=== PATIENT | female | born 1985 | race Caucasian/White ===

== ENCOUNTER 2022-09-07 10:10 | Emergency (ER) | payer OTHER, SELFPAY ==
[2022-09-07 10:11] VITALS: BP 131/90; PULSE 95; RESP 14; TEMP 37.2; O2SAT 91; BMI 43.0
--- NOTE | 2022-09-07 11:07 | RAD_ITS ---
INDICATION: cough EXAMINATION/TECHNIQUE: X-RAY - XR Chest 2 Views COMPARISON: No prior examinations are available for comparison. FINDINGS: LINES/DEVICES: None. LUNGS: No consolidation, edema or effusion. No pneumothorax. MEDIASTINUM AND CARDIOVASCULAR STRUCTURES: Cardiac silhouette not enlarged. Central airways and mediastinal contour are unremarkable. BONES AND SOFT TISSUES: No demonstrated acute osseous changes. RAD/Chest PA and Lateral IMPRESSION: No radiographic evidence of acute cardiopulmonary disease. Electronically Signed: Juan Pablo Lawson MD at 12:11 EDT ,
--- NOTE | 2022-09-07 11:08 | EDS_ITS ---
HPI HPI - URI History of Present Illness Chief Complaint: Shortness of Breath Detail of Chief Complaint: Wheezing. Informant: patient Onset/Context/Timing Onset: Days Context: Gradual Onset Timing: Intermittent Current Severity: Mild Maximum Severity: Mild Associated Symptoms Associated Symptoms: Positive for Productive Cough Narrative Narrative: 37-year-old [place] [facility] female past medical history of high blood pressure. She had a cough shortness of breath was treated for bronchitis by her primary care physician. She was given IM injection of steroids and placed on a Z-Tristin. Says she was feeling better until yesterday symptoms returned. Productive cough of green sputum. No fever. No chest pain. She is wheezing. No hemoptysis. No leg pain or swelling. No history of DVT or PE or risk factors. Prior similar symptoms: Yes Recent Illness/Hospitalization: No ROS ROS ED ROS Narrative Cough, wheezing, shortness of breath. Review of Systems ROS Unobtainable: Denies due to encephalopathy Constitutional Constitutional ED: Denies chills or fever(s) Eyes Eyes: Denies blurry vision ENT ENT ED: Denies ear pain Cardiovascular Cardiovascular: Denies chest pain Respiratory/Chest Respiratory/Chest: Reports cough and dyspnea Gastrointestinal Gastrointestinal: Denies abdominal pain Genitourinary Genitourinary ED: Denies dysuria or hematuria Musculoskeletal Musculoskeletal: Denies arthralgias Integumentary Denies abscess Neurologic Neurologic: Denies headache(s) Psychiatric Psychiatric: Denies anxiety Endocrine Endocrinology: Denies cold intolerance Hematologic/Lymphatic Hematologic/Lymphatic: Denies easy bleeding or easy bruising Allergic/Immunologic Allergic/Immunologic ED: Denies mouth swelling or tongue swelling PFSH PFSH Medical History no medical history no medical history Home Medications prednisone 20 mg tablet 40 mg (2 x 20 mg) PO DAILY 10 days #20 tabs 09/07/22 [Rx Last Taken Unknown] Allergy/AdvReac Type Severity Reaction Status Date / Time No Known Allergies Allergy Verified 09/07/22 10:11 EXAM Physical Exam Narrative Exam Narrative: Well-appearing 37-year-old female. Vital signs are stable afebrile. Pulse ox 91% on room air borderline hypoxia. No distress. H EENT exam unremarkable. TMs posterior pharynx normal. Neck nontender no JVD. Lungs dry cough. No rales or rhonchi. Expiratory wheezing throughout. Equal symmetrical. Heart regular rhythm rate about 90 no murmur. Chest wall nontender. Abdomen soft nontender. Moving all 4 extremities. Calves are nontender without edema or cords. Awake and alert. Const Vital Signs: 09/07/22 10:11 09/07/22 11:20 Temperature 99 F Temperature Source Temporal Pulse Rate 95 86 Respiratory Rate 14 16 Respiratory Pattern Normal Blood Pressure 131/90 H Blood Pressure Mean 103 Pulse Ox 91 Oxygen Delivery Method Room Air Positive well nourished and well developed; Negative for cachectic or contractures General Appearance ED: well developed and NAD; Negative for cachectic, contractures, cyanotic, diaphoretic or pallor Nutritional Appearance: Negative for cachectic HEENT Reports moist mucous membranes; Denies dry mucous membranes normocephalic and atraumatic Face and Sinus: Negative for sinus tenderness Mouth ED: No dry mucous membranes Mouth: No dry mucous membranes Teeth and Gingiva: Negative for caries Throat: posterior oropharynx normal Eyes PERRL and EOMs intact bilaterally General Eye ED: Negative for pale conjunctiva or scleral icterus Neck no lymphadenopathy, supple, no meningeal signs and no JVD General: anterior neck swelling; Negative for lymphadenopathy Resp normal respiratory effort and No clear to auscultation bilaterally Effort and Inspection: Negative for retractions Auscultation: wheezes; Negative for rales or rhonchi Cardio S1 normal heart sound, S2 normal heart sound and no murmurs Rate: regular rate Rhythm: regular rhythm GI non-tender, non-distended and no masses Inspection: Negative for abdominal distention Auscultation: normoactive bowel sounds Palpation: soft; Negative for tender or guarding Back/Spine no CVA tenderness General Back: Negative for CVA tenderness Cervical Spine: Negative for cervical spine tenderness Thoracic Spine / Upper Back: Negative for thoracic spinal tenderness Lumbar Spine / Lower Back: Negative for lumbar spinal tenderness Sacrum: Negative for tenderness Extremity normal to inspection and full ROM General Extremety ED: Negative for cyanosis or tenderness General Extremity: Negative for cyanosis Neuro oriented x3 Sensorium / Orientation: alert, oriented to person, oriented to place and oriented to time; Negative for orientation impaired, lethargic, stuporous or other Motor Exam: strength 5/5 throughout; Negative for general weakness or strength abnormal Psych mental status grossly normal Appearance: Negative for other Attitude: No agitated Mood & Affect: Negative for depressed, anxious or tearful Skin General Skin Exam: Negative for jaundice or pallor Lesions: no lesions Rashes: no rashes Trauma: Negative for abrasion or laceration MDM MDM MDM Narrative Medical decision making narrative: 37-year-old with bronchospasm. May or may not have a viral URI rule out pneumonia. Chest x-ray. Albuterol and DuoNeb aerosols with oral prednisone. Clinically I do not think she has pneumonia. Repeat exam at 12:22 PM. Doing well. Still has some expiratory wheezing. Feeling better after aerosols and steroids. She will be discharged home on prednisone 40 mg a day for 10 days. She needs no further antibiotics. She will follow-up with her primary care physician. History & Record Review Discussion w/independent historian: Patient Radiography Chest X-Ray - ED: 2 View, Read by ED Physician, Heart, Lungs, Mediastinum, Bony Structures, No Acute Disease and Chronic Changes Diagnostic Testing: Clinical Impression(s) from Imaging Studies Chest X-Ray 09/07/22 11:07 IMPRESSION: No radiographic evidence of acute cardiopulmonary disease. Electronically Signed: Juan Pablo Lawson MD at 12:11 EDT , Chest x-ray, 2 views, interpreted myself shows no acute abnormality. Normal cardiac silhouette. No pneumonia. Normal lung irvin. Also interpreted by the radiologist who agrees. Discharge Plan Triage Chief Complaint: Shortness of Breath Other Complaint: Cough ED Provider: Benson Noe Dx/Rx/DC Orders Clinical Impression: Bronchospasm, Bronchitis Instructions: ED Bronchitis with Wheezing (Adult) Prescriptions: New prednisone 20 mg tablet 40 mg PO DAILY 10 Days Qty: 20 0RF Primary Care Provider: James Man Referrals: James Man, [Primary Care Provider] - 3-5 Days if not improving Activity Restrictions/Additional Instructions: Prednisone 40 mg a day starting tomorrow. Use your inhaler as needed. Follow-up with your doctor if not improving or return if worse. Disposition Disposition: Home, Self Care
[2022-09-07] MEDS: Ipratropium/Albuterol Sulfate 3 ML AMPUL.NEB INHALATION (11:19)
[2022-09-07 11:20] VITALS: PULSE 86; RESP 16
[2022-09-07] MEDS: Albuterol 2.5 MG/3 ML VIAL.NEB. INHALATION (11:20)
[2022-09-07] MEDS: predniSONE 20 MG Tablet 60 MG PO (11:29)
[2022-09-07 12:31] VITALS: BP 135/74; PULSE 64; RESP 15; O2SAT 98
== END 2022-09-07 12:37 | disposition home or self-care (01) ==
PROVIDERS: Emergency Provider Emergency Medicine; PCP Family Medicine; Visit Provider Emergency Medicine
DX: J40 Bronchitis, not specified as acute or chronic (principal)
CPT/HCPCS: 71046; 94640; 99283

== ENCOUNTER → 2023-03-17 | Outpatient (CLI) | payer OTHER, SELFPAY ==
--- NOTE | 2023-03-17 14:36 | US_ITS ---
STUDY: SUPERFICIAL ULTRASOUND - RIGHT BUTTOCK REASON FOR EXAM: Female, 38 years old. Palpable mass TECHNIQUE: A superficial ultrasound was performed with real-time and static jarvis-scale imaging. COMPARISON: None. FINDINGS: Limited sonographic evaluation of the right buttock in the area of concern shows only normal cutaneous tissue. There is no suspicious fluid collection, hyperemia or solid mass lesion. US/Ext Non Vasc Limited/Soft Tiss IMPRESSION: No suspicious sonographic findings Electronically Signed: Filippo Sellers MD at 22:05 EST ,
== END | disposition home or self-care (01) ==
PROVIDERS: PCP Family Medicine; Referring Provider Family Medicine; Visit Provider Family Medicine
DX: R22.2 Localized swelling, mass and lump, trunk (principal); R22.31 Localized swelling, mass and lump, right upper limb
CPT/HCPCS: 76882